=== PATIENT | male | born 1990 | race Caucasian/White ===

== ENCOUNTER 2017-02-13 08:14 | Emergency (ER) | payer MEDICAID ==
[2017-02-13 08:16] VITALS: BP 176/98; PULSE 84; RESP 12; TEMP 97.8; O2SAT 96
[2017-02-13] MEDS ORDERED: IBUPROFEN 800 MG TAB PO ONE (08:30)
[2017-02-13] MEDS ORDERED: METHOCARBAMOL 500 MG TAB PO ONE (08:30)
[2017-02-13] MEDS ORDERED: ROBA500T PO (08:33)
[2017-02-13] MEDS ORDERED: IBUP1TAB7 PO (08:33)
--- NOTE | 2017-02-13 08:33 | PD ---
HPI Chief Complaint: Back/ Neck Pain or Injury Time Seen by Provider: 08:25 Travel History International Travel<30 days: No Contact w/Intl Traveler<30days: No Traveled to known affect area: No History of Present Illness HPI 27-year-old male presents to the emergency Department with complaint of low back pain 2 weeks. Denies injury. He does heavy lifting at work and thinks it could possibly be related to that. Denies fever, vomiting, abdominal pain, dysuria. Denies IV drug use, cancer. Denies medical paresis, incontinence, saddle anesthesias. Denies paresthesias, loss of sensation, decreased range of motion, decreased strength to bilateral lower extremities. Denies difficulty ambulating. Rates current pain 4/10. Pain at its worse is 10/10. Pain is worse when he is sleeping and rolls over and he has a shocking, shooting sensation to his left lower back and down his left leg. Has taken Aleve and Tylenol for symptom management. Aleve relieved his pain. No primary care provider. No known allergies. Denies significant past medical history. Has no other medical complaints. No other modifying factors or associated signs and symptoms. [facility] Social History Tobacco Use: No Allergies-Medications (Allergen,Severity, Reaction): Coded Allergies: No Known Allergies (Unverified , 01/20/13) Reported Meds & Prescriptions Reported Meds & Active Scripts Active Ibuprofen 800 Mg Tab 800 Mg PO Q6HR PRN Robaxin (Methocarbamol) 500 Mg Tab 500 Mg PO QID PRN Review of Systems Except as stated in HPI: all other systems reviewed are Neg Physical Exam Narrative GENERAL: Well-nourished, well-developed male patient, in no acute distress; afebrile, nontoxic-appearing SKIN: Warm and dry. HEAD: Atraumatic. Normocephalic. EYES: Pupils equal and round. No scleral icterus. No injection or drainage. ENT: Mucosa pink and moist. Airway patent. NECK: Trachea midline. CARDIOVASCULAR: Regular rate. RESPIRATORY: No accessory muscle use. GASTROINTESTINAL: Obese. MUSCULOSKELETAL: Bilateral lower extremities supple and non-tense with 2+ pedal pulses and sensory intact; with full range of motion and 5/5 strength. 2 + DTRs bilaterally. Active dorsiflexion and extension of bilateral feet. Left straight leg raise is positive for low back pain. Ambulatory in room with normal gait. Sitting up in bed at 90. No obvious deformities. No clubbing. No cyanosis. No edema. BACK: No midline point tenderness on palpation of the lumbar spine. Tenderness on palpation of left lumbar paraspinal and iliosacral area. No obvious deformities. NEUROLOGICAL: Awake and alert. Oriented 3. No obvious cranial nerve deficits. Motor grossly within normal limits. Normal speech. Moves all extremities. 5/5 strength to all extremities. Sensory intact. PSYCHIATRIC: Appropriate mood and affect; insight and judgment normal. Data Data Last Documented VS Vital Signs Date Time Temp Pulse Resp B/P (MAP) Pulse Ox O2 Delivery O2 Flow Rate FiO2 02/13/17 08:32 16 02/13/17 08:16 97.8 84 176/98 (124) 96 Orders Orders Methocarbamol (Robaxin) (02/13/17 08:30) Ibuprofen (Motrin) (02/13/17 08:30) Ed Discharge Order (02/13/17 08:33) MDM Medical Decision Making Medical Screen Exam Complete: Yes Emergency Medical Condition: Yes Medical Record Reviewed: Yes Differential Diagnosis Low back pain, low back strain, sciatica Narrative Course 27-year-old male with low back pain and left-sided sciatica. Denies injury. Denies encopresis, incontinence, saddle anesthesias. Denies IV drug use or cancer. Patient is afebrile and nontoxic-appearing. Denies fevers, vomiting. Patient is ambulatory in the room with normal gait. No midline tenderness on palpation of the lumbar spine. Robaxin and ibuprofen administered in the ER. Robaxin and ibuprofen prescribed for home. Instructed patient to follow up with primary care provider. Patient verbalizes understanding and agreement with treatment plan. Patient is medically cleared and stable for discharge. Discussed reasons to return to the emergency department. Patient agrees with treatment plan. The patients vital signs are stable and the patient is stable for outpatient follow-up and treatment. Patient discharged home, stable and in no acute distress. Diagnosis Primary Impression: Low back pain Qualified Codes: M54.42 - Lumbago with sciatica, left side Referrals: [facility] Primary Care Physician Patient Instructions: Acute Low Back Pain (ED), General Instructions, Sciatica (ED) Additional Instructions: Tylenol or ibuprofen as directed and as needed for pain Robaxin as prescribed and as needed for muscle spasms Heating pad and/or ice to affected area to reduce pain Avoid aggravating activities; increase activity as tolerated Follow-up with primary care provider Return to emergency department immediately with worsening of symptoms Med/Other Pt SpecificInfo: Prescription(s) given Scripts Ibuprofen (Ibuprofen) 800 Mg Tab 800 MG PO Q6HR Y for PAIN, #30 TAB 0 Refills Prov: Kaila Gottlieb 02/13/17 Methocarbamol (Robaxin) 500 Mg Tab 500 MG PO QID Y for MUSCLE SPASM, #30 TAB 0 Refills Prov: Kaila Gottlieb 02/13/17 Disposition: 01 DISCHARGE HOME Condition: Stable Kaila Gottlieb Feb 13, 2017 08:33
== END 2017-02-13 08:50 | disposition home or self-care (01) ==
LOC: NEPD 08:14
DX: M54.42 Lumbago with sciatica, left side (principal)
CPT/HCPCS: 99283